=== PATIENT | male | born 1990 | race Caucasian/White ===

== ENCOUNTER → 2017-05-10 | Outpatient (CLI) | payer BC ==
--- NOTE | 2017-05-10 10:02 | US ---
EXAMINATION TYPE: US liver DATE OF EXAM: 05/10/2017 COMPARISON: NONE CLINICAL HISTORY: R74.8 Elevated Liver Enzymes. EXAM MEASUREMENTS: Liver Length: 16.1 cm Gallbladder Wall: 0.25 cm CBD: 0.24 cm Right Kidney: 10.9 x 5.0 x 4.9 cm Pancreas: Obscured by bowel gas Liver: Increased attenuation Gallbladder: wnl Evidence for sonographic Nails's sign: No CBD: wnl Right Kidney: wnl IMPRESSION: 1. Hepatic steatosis versus diffuse hepatocellular disease
== END | disposition home or self-care (01) ==
LOC: RADUSWWP 09:19
PROVIDERS: ATTEND Family Medicine
DX: R74.8 Abnormal levels of other serum enzymes (principal)
CPT/HCPCS: 76705